=== PATIENT | male | born 1995 | race Caucasian/White ===

== ENCOUNTER 2018-09-27 07:51 | Day surgery (SDC) | payer OTHER ==
[2018-09-26 11:13] VITALS: BMI 22.4
[2018-09-27] MEDS ORDERED: Fentanyl 100 MCG/2 ML VIAL ONE (10:06)
[2018-09-27] MEDS ORDERED: Lidocaine 1% w/Epinephrine 1:100K 20 ML VIAL ONE (10:07)
[2018-09-27] MEDS ORDERED: Ciprofloxacin 0.2% Otic 1 DROP CON ONE (10:07)
[2018-09-27] MEDS ORDERED: PROPOFOL 20 ML ONE (10:21)
[2018-09-27] MEDS ORDERED: PROPOFOL 200 MG/20 ML VIAL ONE (15:45)
[2018-09-27] MEDS ORDERED: Lidocaine 1% PF 5 ML VIAL ONE (15:45)
--- NOTE | 2018-09-28 11:01 | OP ---
DATE OF PROCEDURE: 09/27/2018 PREOPERATIVE DIAGNOSES: 1. Left tympanic membrane perforation. 2. Left conductive hearing loss. POSTOPERATIVE DIAGNOSES: 1. Left tympanic membrane perforation. 2. Left conductive hearing loss. PROCEDURES PERFORMED: Left fat graft myringoplasty. ESTIMATED BLOOD LOSS: 0 mL. COMPLICATIONS: None. ANESTHESIA: LMA. DESCRIPTION OF PROCEDURE: The patient was taken to the operating room and placed supine on the table. LMA anesthesia was obtained by the anesthesia staff. The operating microscope was brought into the field. A small incision was made in the posterior aspect of left earlobe and approximately a 1 cm2 piece of fat was harvested. The incision was then closed using chromic gut stitches. Following this, the 20% anterior and nearly marginal perforation of the tympanic membrane was rimmed using a Brown needle and its margins were removed using up-biting cup forceps. The middle ear mucosa was noted to be healthy today. The fat was placed in a dumbbell like fashion within the tympanic membrane perforation. The patient tolerated the procedure well. Job ID: [id number]
== END 2018-09-27 12:42 | disposition home or self-care (01) ==
LOC: SDC 07:51
PROVIDERS: ATTEND Otolaryngology Plastic Surgery within the Head & Neck
PROC: 09R877Z Replacement of Left Tympanic Membrane with Autologous Tissue Substitute, Via Natural or Artificial Opening (ICD-10-PCS; principal; 2018-09-27)
DX: H72.92 Unspecified perforation of tympanic membrane, left ear (principal); H90.12 Conductive hearing loss, unilateral, left ear, with unrestricted hearing on the contralateral side; Z98.890 Other specified postprocedural states
CPT/HCPCS: J2001; J2704; J3010